=== PATIENT | female | born 1995 | race Caucasian/White ===

== ENCOUNTER 2017-06-07 18:19 | Emergency (ER) | payer OTHER ==
[2017-06-07 19:37] LABS: ABS Basophils 0 10^3/ul (0-0.2); ABS Eosinophils 0 10^3/ul (0-0.6); ABS Lymphocytes 2.3 10^3/ul (1.0-4.8); ABS Monocytes 0.5 10^3/ul (0-0.8); ABS Nucleated RBC 0 10^3/ul; Eosinophil % 0.5 % (0-6); Hematocrit 43 % (35-47); Hemoglobin 14.3 g/dl (12.0-16.0); Mean Corpuscular HGB Conc 34 g/dl (31-36); Mean Corpuscular Hemoglobin 28 pg (27-31); Mean Corpuscular Volume 83 fL (80-97); Mean Platelet Volume 8.3 um3 (7.4-10.4); Nucleated Red Blood Cells % 0.1; Platelet Count 275 10^3/ul (150-450); Red Blood Count 5.09 10^6/ul (4.0-5.4); Red Cell Distribution Width 14 % (10.5-15); White Blood Count 6.9 10^3/ul (3.5-10.8)
[2017-06-07 19:52] LABS: EGFR Non-African American 90.5 (>60)
--- NOTE | 2017-06-07 21:01 | ED ---
Psychiatric Complaint - HPI Summary HPI Summary: Patient with a history of anxiety and depression presents to the ED with chief complaint of worsening anxiety and depression. Friends are with patient. She states she has been having difficulty with her roommate and friend at home which has caused her excess stress leading to anxiety and worsening depression. She takes 100 mg sertraline daily and propanolol for anxiety. She currently sees a therapist. She endorses alcohol use on this date, but states she does not drink regularly. She denies any drug use or smoking history. She denies any pain or health concerns at this time. She takes no other medication for any other reason. Denies any self-harm. Endorses suicidal ideation, but denies to a plan. Denies any homicidal ideations. She is a student at [employer], has roommates and good support system of friends. She denies any complications in school. - History Of Current Complaint Chief Complaint: [facility]entalHealth Time Seen by Provider: 06/07/17 18:56 Hx Obtained From: Patient ?: No Onset/Duration: Sudden Onset Timing: Constant Severity Initially: Mild Severity Currently: Mild Character: Depressed, Anxious Aggravating Factor(s): Recent Stress Alleviating Factor(s): Nothing Associated Signs And Symptoms: Positive: Negative Has Suicidal: Reports: Thoughts Ingestion History: Type/Name Of Drug - alcohol, Amount Ingested - unknown - Allergies/Home Medications Allergies/Adverse Reactions: Allergies Allergy/AdvReac Type Severity Reaction Status Date / Time No Known Allergies Allergy Verified 06/07/17 21:27 Home Medications: Home Medications Sertraline HCl [Zoloft] 100 mg PO DAILY 06/07/17 [History Confirmed 06/07/17] PMH/Surg Hx/FS Hx/Imm Hx Previously Healthy: Yes - Immunization History Hx Pertussis Vaccination: No Immunizations Up to Date: Unable to Obtain/Confirm Infectious Disease History: No Infectious Disease History: Denies: Traveled Outside the [place] in Last 30 Days - Social History Occupation: Unemployed Lives: With Family Alcohol Use: Daily Hx Substance Use: No Substance Use Type: Reports: None Hx Tobacco Use: No Smoking Status (MU): Unknown if Ever Smoked Review of Systems Constitutional: Negative Negative: Fever, Chills, Fatigue, Skin Diaphoresis Eyes: Negative Cardiovascular: Negative Respiratory: Negative Genitourinary: Negative Positive: no symptoms reported, see HPI Musculoskeletal: Negative Neurological: Negative Positive: Anxious, Depressed All Other Systems Reviewed And Are Negative: Yes Physical Exam Triage Information Reviewed: Yes Vital Signs On Initial Exam: Initial Vitals Temp Pulse Resp BP Pulse Ox 97.3 F 75 18 118/67 100 06/07/17 18:21 06/07/17 18:21 06/07/17 18:21 06/07/17 18:21 06/07/17 18:21 Vital Signs Reviewed: Yes Appearance: Positive: Well-Appearing, Well-Nourished Skin: Positive: Warm, Skin Color Reflects Adequate Perfusion Head/Face: Positive: Normal Head/Face Inspection Eyes: Positive: EOMI, SHU, Conjunctiva Clear Neck: Positive: Supple, No Lymphadenopathy Respiratory/Lung Sounds: Positive: Clear to Auscultation, Breath Sounds Present Cardiovascular: Positive: RRR, Pulses are Symmetrical in both Upper and Lower Extremities Musculoskeletal: Positive: Strength/ROM Intact Neurological: Positive: Normal, Speech Normal, Pronator Drift Present Psychiatric: Positive: Anxious, Depressed AVPU Assessment: Alert Diagnostics - Vital Signs Vital Signs Temp Pulse Resp BP Pulse Ox 06/07/17 18:21 97.3 F 75 18 118/67 100 - Laboratory Lab Results: Lab Results 06/07/17 06/07/17 Range/Units 19:27 19:27 WBC 6.9 (3.5-10.8) 10^3/ul RBC 5.09 (4.0-5.4) 10^6/ul Hgb 14.3 (12.0-16.0) g/dl Hct 43 (35-47) % MCV 83 (80-97) fL MCH 28 (27-31) pg MCHC 34 (31-36) g/dl RDW 14 (10.5-15) % Plt Count 275 (150-450) 10^3/ul MPV 8.3 (7.4-10.4) um3 Neut % (Auto) 58.1 (38-83) % Lymph % (Auto) 33.0 (25-47) % Greer % (Auto) 7.8 H (0-7) % Eos % (Auto) 0.5 (0-6) % Baso % (Auto) 0.6 (0-2) % Absolute Neuts (auto) 4.0 (1.5-7.7) 10^3/ul Absolute Lymphs (auto) 2.3 (1.0-4.8) 10^3/ul Absolute Monos (auto) 0.5 (0-0.8) 10^3/ul Absolute Eos (auto) 0 (0-0.6) 10^3/ul Absolute Basos (auto) 0 (0-0.2) 10^3/ul Absolute Nucleated RBC 0 10^3/ul Nucleated RBC % 0.1 Sodium 142 (139-145) mmol/L Potassium 4.1 (3.5-5.0) mmol/L Chloride 105 (101-111) mmol/L Carbon Dioxide 26 (22-32) mmol/L Anion Gap 11 (2-11) mmol/L BUN 11 (6-24) mg/dL Creatinine 0.80 (0.51-0.95) mg/dL Est GFR ( Amer) 116.4 (>60) Est GFR (Non-Af Amer) 90.5 (>60) BUN/Creatinine Ratio 13.8 (8-20) Glucose 97 (70-100) mg/dL Calcium 9.4 (8.6-10.3) mg/dL Total Bilirubin 0.40 (0.2-1.0) mg/dL AST 16 (13-39) U/L ALT 9 (7-52) U/L Alkaline Phosphatase 52 (34-104) U/L Total Protein 7.8 (6.4-8.9) g/dL Albumin 4.8 (3.2-5.2) g/dL Globulin 3.0 (2-4) g/dL Albumin/Globulin Ratio 1.6 (1-3) TSH 1.04 (0.34-5.60) mcIU/mL Salicylates < 2.50 (<30) mg/dL Acetaminophen < 15 mcg/mL Serum Alcohol 83 H (<10) mg/dL Result Diagrams: 06/07/17 19:27 06/07/17 19:27 Lab Statement: Any lab studies that have been ordered have been reviewed, and results considered in the medical decision making process. Course/Dx - Course Course Of Treatment: The patient is evaluated for suicidal ideations and worsening depression and anxiety. Denies any homicidal ideations. Denies any self-harm. She has taken her sertraline 100 mg this morning but has not taken her propanolol. She is here for evaluation of her suicidal thoughts. Alcohol level 83. She is cleared for MHU. Dr. Swenson to consult and deems her safe for discharge. I agree with this plan. Discharged to home. - Differential Dx/Clinical Impression Provider Diagnosis: Depressed, Suicidal ideation Discharge - Sign-Out/Discharge Documenting (check all that apply): Discharge - Discharge Plan Condition: Stable Disposition: HOME [facility] - - Billing Disposition and Condition Condition: STABLE Disposition: HOME
[2017-06-07 21:09] LABS: Urine Appearance Clear; Urine Blood 1+ (Negative); Urine Color Yellow; Urine Ketones Negative (Negative); Urine Protein Negative (Negative); Urine Specific Gravity 1.013 (1.010-1.030); Urine Urobilinogen Negative (Negative)
[2017-06-07 22:32] VITALS: BP 115/62
== END 2017-06-07 23:03 | disposition home or self-care (01) ==
LOC: ED 18:19
DX: R45.851 Suicidal ideations (principal); F41.9 Anxiety disorder, unspecified; F32.9 Major depressive disorder, single episode, unspecified; Z79.899 Other long term (current) drug therapy
CPT/HCPCS: 36415; 80053; 80307; 80320; 80329; 81003; 81015; 84443; 85025; 87086; 99285; G0480